=== PATIENT | female | born 1960 | race Caucasian/White ===

== ENCOUNTER 2018-11-13 05:50 | Day surgery (SDC) | payer OTHER ==
[~2018-11-13 05:50] MED LIST: CLARITIN10 M1 PO; FIORINAL-COD 31 EACH PO; LIPITOR20 MG PO; NAPROXEN500 MG PO; RESTORIL30 MG PO; TRETAL PO
== END 2018-11-13 16:30 | disposition home or self-care (01) ==
LOC: CIR.AMB 05:50
DX: C54.1 Malignant neoplasm of endometrium (principal)
CPT/HCPCS: 36561; C1751

== ENCOUNTER 2018-12-06 07:43 | Outpatient (CLI) | payer OTHER | END 2018-12-06 07:51 | disposition home or self-care (01) | LOC: RAD 07:43 | DX: T82.598A Other mechanical complication of other cardiac and vascular devices and implants, initial encounter (principal); Z12.31 Encounter for screening mammogram for malignant neoplasm of breast ==

== ENCOUNTER 2020-06-23 05:55 | Day surgery (SDC) | payer OTHER ==
[~2020-06-23 05:55] MED LIST changes: +ACETAMINOPHEN325 M1 PO; +GABAPENTIN600 MG PO; +MELOXICAM7.5 MG PO
== END 2020-06-23 12:40 | disposition home or self-care (01) ==
LOC: CIR.AMB 05:55
PROVIDERS: ATTEND Specialist
DX: C54.1 Malignant neoplasm of endometrium (principal); Z20.822 Contact with and (suspected) exposure to COVID-19